=== PATIENT | male | born 1980 | race Caucasian/White ===

== ENCOUNTER 2020-07-30 10:17 | Outpatient (CLI) | payer BC, SELFPAY | END 2020-07-30 10:18 | disposition home or self-care (01) | LOC: ANHCOVIDVC 10:17 | DX: Z23 Encounter for immunization (principal) | CPT/HCPCS: 0001A; 91300 ==

== ENCOUNTER 2020-08-20 10:10 | Outpatient (CLI) | payer BC, SELFPAY | END 2020-08-20 10:11 | disposition home or self-care (01) | LOC: ANHCOVIDVC 10:10 | DX: Z23 Encounter for immunization (principal) | CPT/HCPCS: 0002A; 91300 ==

== ENCOUNTER 2024-02-25 00:34 | Day surgery (SDC) | payer BC, SELFPAY ==
[2024-02-16 12:55] VITALS: BMI 31.9
[2024-02-25 07:05] VITALS: BP 120/79; PULSE 89; RESP 18; TEMP 36.7; O2SAT 98
[2024-02-25] MEDS: LACTATED RINGERS 1,000 ML 150 ML IV CONT (07:07)
--- NOTE | 2024-02-25 07:19 | P.PNAN_ITS ---
Anes - Initial Pre Proc Eval Procedure: Operation Date: 02/25/24 08:30 Proposed Procedures p Screening Colonoscopy - Abhijeet Nobles MD Date/Time: 02/25/24 07:19 Surgeon: Abhijeet Nobles MD Pre Op Diagnosis: screening colon Patient Data Age: 44 Gender: M Height: 1.88 m Weight: 111.3 kg Last Vital Signs Temp 36.7 C 02/25/24 07:05 Pulse 89 02/25/24 07:05 Resp 18 02/25/24 07:05 BP 120/79 02/25/24 07:05 Pulse Ox 98 02/25/24 07:05 O2 Del Method Room Air 02/25/24 07:05 Allergies Allergy/AdvReac Type Severity Reaction Status Date / Time No Known Allergies Allergy Verified 02/25/24 07:03 Home Medications Medication Instructions Recorded Confirmed Type omega-3 fatty acids-vitamin E 1 cap PO DAILY 02/16/24 02/25/24 History 1,000 mg capsule triamcinolone acetonide 0.5 % 1 applic topical BID PRN Rash 02/16/24 02/25/24 History topical cream simvastatin 10 mg tablet 10 mg PO DAILY 02/23/24 02/25/24 History Patient hx anesthesia problems: none Family hx anesthesia problems: none Results Review: All pre-operative results and documents have been reviewed as part of the pre-operative evaluation. [facility] Past Medical History Medical History (Updated 02/25/24 @ 07:20 by Ant Rojo MD) Hyperlipemia Obesity Surgical History Surgical History Vasectomy status Family History Family History Mother Breast cancer Sibling Asthma Social History Social History Smoking packs per day: 1 Smoking cigarettes per day: 20.0 Years smoked: 8 Smoking pack-years: 8.00 Smoking status: Former smoker Alcohol intake: current Drinks per week: 5 Substance use: never Lack of Transportation: No Lack of Food: Never True Current Housing: I Have Housing Concerned About Future Housing: No Difficulty Paying Gas/Electric Bills: No Difficulty Paying for Meds: No Currently Unemployed: No Education: High School Diploma/GED Difficulty w/ Childcare or Family Care: No Living arrangements: with family Spiritual care concerns: No Anes - Eval Final PreProcedure Day of Procedure 02/25/24 07:19 Patient weight: obese Heart: regular rate and rhythm Lungs: clear to auscultation Airway: Mallampati scale class II Neurological: alert and oriented Last oral intake: >/= 8 hours ASA classification: II Emergent: no Anesthetic plan: proceed Anesthesia type and monitoring: general GIVS and standard monitoring Results Review: All pre-operative results and documents have been reviewed as part of the pre- operative evaluation. Informed Consent: The patient's anesthetic plan and its attendant risks and benefits were discussed with the patient/family/POA. Questions were solicited and answers provided to the satisfaction of the patient/family/POA.
--- NOTE | 2024-02-25 08:14 | PM.IMHP ---
H&P: HPI History of Present Illness Date/Time: 02/25/24 08:14 Chief Complaint: Screening colonoscopy Narrative: This is the patient's first colonoscopy. There are no GI symptoms and there is no family history of colorectal cancer. Review of Systems Review of Systems: All systems reviewed & are unremarkable except as noted in HPI and below PMFSH Past Medical History Medical History (Updated 02/25/24 @ 07:20 by Ant Rojo MD) Hyperlipemia Obesity Surgical History Surgical History Vasectomy status Family History Family History Mother Breast cancer Sibling Asthma Social History Social History Smoking packs per day: 1 Smoking cigarettes per day: 20.0 Years smoked: 8 Smoking pack-years: 8.00 Smoking status: Former smoker Alcohol intake: current Drinks per week: 5 Substance use: never Lack of Transportation: No Lack of Food: Never True Current Housing: I Have Housing Concerned About Future Housing: No Difficulty Paying Gas/Electric Bills: No Difficulty Paying for Meds: No Currently Unemployed: No Education: High School Diploma/GED Difficulty w/ Childcare or Family Care: No Living arrangements: with family Spiritual care concerns: No Meds Home Medications and Allergies Home Medications Medication Instructions Recorded Confirmed Type omega-3 fatty acids-vitamin E 1 cap PO DAILY 02/16/24 02/25/24 History 1,000 mg capsule triamcinolone acetonide 0.5 % 1 applic topical BID PRN Rash 02/16/24 02/25/24 History topical cream simvastatin 10 mg tablet 10 mg PO DAILY 02/23/24 02/25/24 History Allergies Allergy/AdvReac Type Severity Reaction Status Date / Time No Known Allergies Allergy Verified 02/25/24 07:03 Vital Signs Vital Signs - 24 hr 02/25/24 07:05 Temperature 98.0 F Pulse Rate 89 Respiratory Rate 18 Blood Pressure 120/79 Pulse Oximetry 98 Oxygen Delivery Room Air Exam Const: General: cooperative and healthy appearing Resp: Effort & Inspection: normal respiratory effort and able to speak in complete sentences Auscultation: clear to auscultation bilaterally Cardio: Rate: regular rate Rhythm: regular rhythm GI: Inspection: normal to inspection GI Palp: No No hepatosplenomegaly present Auscultation: normal bowel sounds Rectal Exam: deferred Skin: General skin exam: normal color Psych: Appearance: grossly normal Mental Status: mental status grossly normal Assessment and Plan Assessment and plan (1) Screening for colon cancer: Code(s): Z12.11 - Encounter for screening for malignant neoplasm of colon Status: Acute Assessment and Plan: The patient is deemed a good candidate for the procedure. Consent signed. Will proceed.
[2024-02-25 08:43] VITALS: BP 111/74; PULSE 65; RESP 21; O2SAT 99
[2024-02-25 09:03] VITALS: BP 120/81; PULSE 64; RESP 18; O2SAT 100
== END 2024-02-25 09:19 | disposition home or self-care (01) ==
PROVIDERS: PCP Family Medicine; Referring Provider Family Medicine; Visit Provider Internal Medicine Gastroenterology
PROC: 0DJD8ZZ Inspection of Lower Intestinal Tract, Via Natural or Artificial Opening Endoscopic (ICD-10-PCS; CPT 45378; principal; 2024-02-25 08:30)
DX: Z12.11 Encounter for screening for malignant neoplasm of colon (principal); D12.3 Benign neoplasm of transverse colon; D12.4 Benign neoplasm of descending colon; K63.5 Polyp of colon; E78.5 Hyperlipidemia, unspecified; Z87.891 Personal history of nicotine dependence; E66.9 Obesity, unspecified; Z68.31 Body mass index [BMI] 31.0-31.9, adult
CPT/HCPCS: 45385; 88305; J2003; J2704; J7120